=== PATIENT | female | born 1960 | race Caucasian/White ===

== ENCOUNTER 2016-10-27 12:28 | Day surgery (SDC) | payer OTHER ==
[~2016-10-27 12:28] MED LIST: IV START KIT ONE; SODIUM CHLORIDE 0.9% FLUSH 10 ML ONE
[2016-10-27 12:46] VITALS: BMI 23.6
[2016-10-27] MEDS ORDERED: LACTATED RINGERS 1,000 ML ONE (14:10)
[2016-10-27] MEDS ORDERED: IV START KIT ONE ×2 (14:11→14:35)
[2016-10-27] MEDS ORDERED: FENTANYL 100 MCG/2 ML VIAL ONE ×3 (14:18→16:25)
[2016-10-27] MEDS ORDERED: SODIUM CHLORIDE 0.9% FLUSH 10 ML ONE ×2 (14:18→14:40)
[2016-10-27] MEDS ORDERED: MIDAZOLAM HCL 1 MG/ML 2ML VIAL ONE ×2 (14:18→15:23)
[2016-10-27] MEDS ORDERED: LIDOCAINE 0.5% (PRES FREE) 50 ML VIAL ONE (14:39)
[2016-10-27] MEDS ORDERED: PROPOFOL 20 ML IV ONE (14:46)
[2016-10-27] MEDS ORDERED: ONDANSETRON 4 MG/2ML 2 ML VIAL ONE (15:17)
[2016-10-27] MEDS ORDERED: KETAMINE HCL UD SYRINGE 100 MG/2 ML IV ONE (15:26)
[2016-10-27] MEDS ORDERED: PIPERACILLIN-TAZO PREMIX BAG 3.375 G in Premix (D5W) 50 ml 1 EACH IV SCH (15:45)
[2016-10-27] MEDS ORDERED: KETOROLAC TROMETHAMINE 30 MG/ML 1 ML VIAL ONE (16:08)
--- NOTE | 2016-10-27 16:26 | PCMBPN ---
Brief Post Op Note: Date of Procedure: 10/27/16 Start Time: 1500 Preoperative Diagnosis: 1. left index finger cat bites with pyogenic flexor tenosynovitis Postoperative Diagnosis: 1. Same Procedure: left index finger I&D Surgeon: Aaron Shah MD Assist: none Anesthesia: Jude Morales Findings: purulence in flexor tendon sheath Condition: stable to PACU Complications: none IV Fluids: 1100 mLs of LR Urine Output: 0 mLs Estimated Blood Loss: 5 mLs Tourniquet Time: 31 min at 250 mm Hg Specimens: swabs for culture Implants: none Drains: none Aaron Shah MD
[2016-10-27] MEDS ORDERED: FENTANYL 100 MCG/2 ML VIAL IV ONE (16:29)
[2016-10-27] MEDS ORDERED: FENTANYL 100 MCG/2 ML VIAL IV PRN (16:50)
[2016-10-27] MEDS ORDERED: ONDANSETRON 4 MG/2ML 2 ML VIAL IV PRN (16:53)
[2016-10-27] MEDS ORDERED: D5 1/2NS with 20 mEq KCL 1,000 ML IV SCH (16:53)
[2016-10-27] MEDS ORDERED: ACETAMINOPHEN 325 MG TABLET PO PRN (16:53)
[2016-10-27] MEDS ORDERED: MENTHOL/CETYLPYRD 1 EACH LOZENGE PO PRN (16:53)
[2016-10-27] MEDS ORDERED: KETOROLAC TROMETHAMINE 30 MG/ML 1 ML VIAL IV PRN (16:53)
[2016-10-27] MEDS ORDERED: BLISTEX LIPSTICK 1 EACH TP PRN (16:53)
[2016-10-27] MEDS ORDERED: PUMP TUBING ONE (17:06)
[2016-10-27] MEDS ORDERED: DIPHENHYDRAMINE HCL 25 MG CAPSULE PO PRN (17:34)
[2016-10-27] MEDS ORDERED: HYDROMORPHONE HCL 1 MG/ML SYRINGE IV PRN ×2 (17:34→17:47)
[2016-10-27] MEDS ORDERED: HYDROMORPHONE HCL 0.5 MG/0.5 ML SYRINGE IV PRN (17:46)
[2016-10-27] MEDS: TRAMADOL HCL 50 MG TABLET PO PRN (19:23)
[2016-10-27] MEDS: PIPERACILLIN-TAZO PREMIX BAG 3.375 G in Premix (D5W) 50 ml 1 EACH IV SCH (21:10)
[2016-10-27] MEDS: KETOROLAC TROMETHAMINE 30 MG/ML 1 ML VIAL IV PRN (21:11)
[2016-10-28] MEDS: KETOROLAC TROMETHAMINE 30 MG/ML 1 ML VIAL IV PRN ×3 (03:45→15:58)
[2016-10-28] MEDS: PIPERACILLIN-TAZO PREMIX BAG 3.375 G in Premix (D5W) 50 ml 1 EACH IV SCH ×3 (03:45→15:58)
[2016-10-28 07:08] LABS: HEMATOCRIT 36.6 % (37.0-47.0); HEMOGLOBIN 11.6 gm/l (12.0-16.0); MEAN CORPUSCULAR HEMOGLOBIN 29.1 pg (27.0-31.0); MEAN CORPUSCULAR HGB CONC 31.7 g/dl (33.0-37.0); RED CELL DISTRIBUTION WIDTH 12.4 % (11.5-14.5)
[2016-10-28] MEDS ORDERED: [UNRECOGNIZED DRUG - OTHER] PO SCH (09:00)
[2016-10-28] MEDS: ARGININE PO SCH ×3 (09:58→14:35)
[2016-10-28] MEDS: TRAMADOL HCL 50 MG TABLET PO PRN ×2 (14:35→17:49)
[2016-10-28 15:06] VITALS: BP 139/84
--- NOTE | 2016-10-28 17:59 | PDOC43 ---
- Subjective Findings: Doing well today, pain in finger is improved. Subjective: Reports Pain Tolerable, Denies Chest Pain, Denies Shortness of Breath, Denies Nausea, Denies Vomiting, Denies Fever - Objective Vital Signs Temperature 97.8 F 10/28/16 13:00 Pulse Rate 65 10/28/16 13:00 Respiratory Rate 15 10/28/16 13:00 Blood Pressure 139/84 10/28/16 13:00 O2 Saturation by Pulse Oximetry 97 10/28/16 13:00 Oxygen Delivery Method Room Air Oxygen Flow Rate 0 Laboratory 10/28/16 06:25 10/28/16 06:25 RBC 3.98 L MCHC 31.7 L C-Reactive Protein 1.4 H Active Medication Orders Category Date Time Status Acetaminophen [Tylenol] Med 10/27/16 16:53 Active 325 - 650 mg PO Q4H PRN Arginine [l-Arginine] Med 10/27/16 21:00 Active 700 mg PO TID Diphenhydramine HCl [Benadryl] Med 10/27/16 17:34 Active 25 mg PO BEDTIME PRN Hydromorphone HCl [Dilaudid] Med 10/27/16 17:46 Active 0.5 - 1 mg IV Q1H PRN Hydromorphone HCl [Dilaudid] Med 10/27/16 17:47 Active 0.5 - 1 mg IV Q1H PRN Ketorolac Tromethamine [Toradol] Med 10/27/16 22:00 Active 30 mg IV Q6H PRN Lip Jackson [Blistex] Med 10/27/16 16:53 Active 1 each TP PRN PRN Menthol/Cetylpyridinium [Cepacol] Med 10/27/16 16:53 Active 1 each PO PRN PRN Ondansetron 4 mg/2ml Vial [Zofran] Med 10/27/16 16:53 Active 4 mg IV Q6H PRN Piperacillin-Tazo Premix Bag [Zosyn 3.375 G] 3.375 g Med 10/27/16 22:00 Active Premix (D5W) 50 ml 1 each IV Q6H Primadophilus Med 10/28/16 09:00 Active 1 tab PO DAILY Sodium Chloride 0.9% Flush [Normal Saline 10ml Flush] Med 10/27/16 16:53 Active 10 - 50 ml IV PRN PRN Sodium Chloride 0.9% Flush [Normal Saline 10ml Flush] Med 10/27/16 17:00 Active 10 ml IV Q8HR Tramadol HCl [Ultram] Med 10/27/16 16:53 Active 50 mg PO Q4H PRN Intake and Output 10/26/16 10/27/16 10/28/16 23:59 23:59 23:59 Intake Total 1800 2085 Output Total 605 3900 Balance 1195 -1815 General: Afebrile, No Acute Distress Lungs: Clear to Auscultation Bilaterally, Normal Air Movement Abdomen: Soft, No Tenderness Skin: Normal Color, Warm, Dry, Intact Neurological: Grossly Intact, Alert, Oriented x 4 Psych/Mental Status: Normal Affect, Normal Mood - Left Upper Extremity Incision: Dressing Clean/Dry/Intact, Well Approximated, Independence Intact, No Drainage, No Erythema, No Rash, No Ecchymosis Motor: Extensor Pollicis Longus: 5/5, Finger Flexors: 5/5, Finger Extensors: 5/5 , Wrist Flexors: 5/5, Wrist Extensors: 5/5 Gross Sensation to Light Touch: Present: Median Nerve, Ulnar Nerve, Radial Nerve , Axillary Nerve Capillary Refill: < 3 Seconds - Problems (1) Infection of flexor tendon sheath Status: AcuteAssessment/Plan: POD#1 L IF flexor tendon I&D 1. Physical Therapy: gentle ROM of IF 2. Pain Control: Tylenol/Toradol/Ultram 3. DVT Prophylaxis: mechanical and ambulation 4. Disposition: home today on PO abx 5. Medical Issues: finger improved, transition to PO abx and send home, followup in 1 week. Aaron Shah MD
--- NOTE | 2016-10-29 09:39 | OP ---
Nikki AMAYA : 1960 [id number] DATE OF SERVICE: October 27, 2016 PREOPERATIVE DIAGNOSIS: Left index finger cat bites with a pyogenic flexor tenosynovitis. POSTOPERATIVE DIAGNOSIS: Left index finger cat bites with a pyogenic flexor tenosynovitis. PROCEDURE PERFORMED: LEFT INDEX FINGER IRRIGATION AND DEBRIDEMENT. SURGEON: Aaron Shah M.D. CHEMICAL LABORATORY ASSISTANT: None. ANESTHESIA: Sue De La VegaNNancy SPECIMENS: Swabs for culture were sent to the laboratory. FINDINGS: Include purulence in the flexor tendon sheath. ESTIMATED BLOOD LOSS: 5 mL. FLUIDS REPLACED: 1100 mL of crystalloid. TOURNIQUET TIME: 31 minutes at 250 mmHg. IMPLANTS: None DRAINS: None. INDICATIONS: This is a 56-year-old female who sustained cat bites to her left index finger. She was treated at an outpatient facility with oral antibiotics, but presented with increasing pain in her finger. She had 5/5 Kanavel signs and diagnosis of flexor tenosynovitis was made. The patient was advised that she needed to undergo irrigation and debridement of the flexor tendon sheath as well as the cat bites on her finger in order to prevent further deformity and dysfunction. Risks, benefits and alternatives were discussed at length. The patient elected to proceed with surgery. Informed consent was obtained and documented in the chart and she was taken to the operating room in an expedient fashion. DESCRIPTION OF PROCEDURE: The patient was identified in the pre-operative holding area and marked with an indelible marker by the operating surgeon. She was taken to the operating room where she was placed in a supine position the operating room table. A regional block was administered. A well padded pre-calibrated nonsterile tourniquet was placed on her left upper arm. She was prepped and draped in the usual sterile fashion for surgery. Perioperative antibiotics were held. A final operative time out was performed and confirmed by all members of the operative team. Anesthesia was administered around the finger and her arm was elevated and the tourniquet was inflated to 250 mmHg. Initial exploration of all of the bite locations was performed with a snap and a curette and all of these were curetted out to ensure that they were a draining appropriately. I then made transverse incisions just proximal to the A1 stuart and just distal to the insertion of the flexor tendons. Dissection was carried down bluntly to identify the flexor tendon insertions and then a surgical wire was passed through the flexor tendon sheath from proximal to distal and over this a pediatric feeding tube was cannulated into the flexor tendon sheath. There was significant purulence noted in the flexor tendon sheath when we opened it and we obtained cultures of this and sent to the laboratory. Two liters of fluid was irrigated through the flexor tendon sheath from both ends to ensure that we had adequately irrigated and addressed the surgical infection. At this point we copiously irrigated all of the remaining wound sites and then placed just a couple of small stay sutures at each of the larger incisions to appose the skin edges. A sterile dressing of Xeroform, fluffs, web roll and tube gauze was applied to the patient's finger. The drapes were removed. The patient received her perioperative antibiotics as soon as the cultures have been obtained. The drapes were removed. The patient was awakened from her anesthesia sedation. She was transferred to a stretcher and taken postoperatively to the postanesthesia care unit in stable condition. There were no observed intraoperative complications during this procedure. Job [id number] Cc: [facility]
== END 2016-10-28 18:29 | disposition home or self-care (01) ==
LOC: UNDOADMIN 12:28 → MS 12:28 → SDC 12:28 → MS 16:13 → EDSTATUS 17:00 → SDC 10-28 18:29
PROVIDERS: ATTEND Orthopaedic Surgery
PROC: 0H9GXZX Drainage of Left Hand Skin, External Approach, Diagnostic (ICD-10-PCS; principal; 2016-10-27)
DX: M65.142 Other infective (teno)synovitis, left hand (principal); W55.01XA Bitten by cat, initial encounter
CPT/HCPCS: 86141; 85027; 87070 ×2; 85651; 36415; 26010; A6453 ×2; A9270 ×4; J3010 ×3; J1885 ×5; J2250 ×2; J2001; J2405 ×2; J2543; J7120; J7030